=== PATIENT | male | born 1960 | race Caucasian/White ===

== ENCOUNTER 2017-02-05 23:01 | Inpatient (IN) ==
[2017-02-05] MEDS ORDERED: 0.9 % Sodium Chloride 1,000 ML IVC ONE ×2 (23:19→23:22)
[2017-02-05 23:26] LABS: Basophils % 0.1 %; Hemoglobin 17.5 g/dL (12.9-16.9); Immature Granulocytes % 0.6 % (0-4); Lymphocytes # 0.7 K/mcL (0.6-4.6); Lymphocytes % 4.2 %; Mean Corpuscular HGB Conc 33.7 g/dL (31.6-35.5); Mean Corpuscular Hemoglobin 31.4 pg (28.0-33.3); Mean Corpuscular Volume 93.4 fL (83.0-100.0); Mean Platelet Volume 9.8 fL (9.4-12.4); Monocytes # 2.2 K/mcL (0.0-1.3); Monocytes % 12.9 %; Neutrophils # 13.8 K/mcL (1.6-8.9); Platelet Count 267 K/mcL (140-400); Red Blood Count 5.57 M/mcL (4.19-5.50); Segmented Neutrophils % 82.2 %
[2017-02-05 23:31] LABS: Prothrombin Time 11.2 Seconds (9.4-12.1)
[2017-02-05 23:33] LABS: Activated Partial Thrombo Time 28.7 Seconds (26.0-36.0)
[2017-02-05 23:37] LABS: Alanine Aminotransferase 39 Units/L (7-52); Albumin 4.4 g/dL (3.5-5.7); Albumin/Globulin Ratio 1.4 (1.1-2.2); Alkaline Phosphatase 50 Units/L (34-104); Aspartate Amino Transferase 64 Units/L (13-39); BUN/Creatinine Ratio 25 (6-26); Bilirubin,Direct 0.2 mg/dL (0.0-0.2); Bilirubin,Indirect 0.7 mg/dL (0.0-1.2); Bilirubin,Total 0.9 mg/dL (0.3-1.0); Blood Urea Nitrogen 39 mg/dL (6-20); Calcium 9.1 mg/dL (8.6-10.3); Carbon Dioxide 22 mEq/L (23-29); Chloride 101 mEq/L (98-107); Ethanol < 10 mg/dL (0-10); Globulin 3.2 g/dL (2.4-3.5); Glucose 192 mg/dL (70-105); Osmolality,Calculated 305 (280-300); Potassium 3.6 mEq/L (3.5-5.1); Sodium 140 mEq/L (136-145); Total Protein 7.6 g/dL (6.4-8.9); eGFR For African Americans 57 (> 60); eGFR For Non-African Americans 47 (> 60)
--- NOTE | 2017-02-05 23:42 | Emergency Department Note ---
Disposition Clinical Impression: Unresponsive, Elevated troponin, Elevated CK Disposition: Admitted As Inpatient Condition: Serious General Adult HPI - General Chief complaint: ED Overdose Stated complaint: unresponsive Time Seen by Provider: 02/05/17 23:19 Source: family, EMS Mode of arrival: EMS Limitations: altered mental status Nursing Notes Reviewed: Yes Vital Signs Reviewed: Yes - History of Present Illness HPI Narrative: 56-year-old male no reported medical history who presents to the ER via EMS found unresponsive. As per family the patient lives at home alone. He usually calls them daily around 7 PM. They will call today after someone spoke with the patient around 1 PM and said that he was sick. Family states the said he was having a sore throat. 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 Reports that the police went to his house around 5 PM but no one came to the door. They did not see a scar there. They were called again and noticed that his car was around back. They do report that the window was busted out of it. The police then knock down his front door and apparently found the patient unresponsive. He was given Narcan prior to EMS arrival. EMS gave a second dose of Narcan and attempted to intubate multiple times without success. Patient did have emesis in route. He was given Versed prior to arrival here. Upon arrival he is unresponsive with a GCS of 3. He was promptly intubated for airway securement. Pt Subjective Complaint: Unresponsive Onset (ago): hour(s) Pain Scale: 0 Improves with: nothing Worsens with: nothing Treatments Prior to Arrival: other (Narcan) - Related Data Allergies Allergy/AdvReac Type Severity Reaction Status Date / Time No Known Allergies Allergy Verified 02/05/17 23:03 Limitations: ROS unobtainable due to patients medical condition Past Medical History - Past Medical History Attestation: Yes The following information was validated with the patient. Source: obtained from family Medical history: Reports: non-contributory - Social History Smoking Status: Unknown if ever smoked Physical Exam - General Limitations: other General appearance: obtunded - Head Head exam: atraumatic, normocephalic - Eye Eye exam: Present: normal appearance, miosis - Neck Neck exam: Present: normal inspection - Chest Chest inspection: Present: normal inspection, symmetric chest wall rise, other ( There is dried emesis over the left neck and chest that appears to be black.) - Respiratory Respiratory exam: Present: other (He has diminished breath sounds bilaterally.) - Cardiovascular Cardiovascular exam: Present: normal rhythm, tachycardia, normal heart sounds - Abdominal Exam Abdominal exam: Present: soft. Absent: distention - Extremities Exam Extremities exam: Present: normal inspection - Expanded Upper Extremity Exam Shoulder exam: Present: normal inspection Arm exam: Present: normal inspection Elbow exam: Present: normal inspection Forearm/Wrist exam: Present: normal inspection Hand exam: Present: normal inspection - Expanded Lower Extremity Exam Hip/Pelvis exam: Present: normal inspection Upper leg exam: Present: normal inspection Knee exam: Present: normal inspection Lower leg exam: Present: normal inspection Ankle exam: Present: normal inspection Foot/toe exam: Present: normal inspection - Neurological Exam Neurological exam: Present: other (The patient presents obtunded with a GCS of 3.) - Skin Skin exam: Present: warm, dry Course Course Narrative: Patient seen and examined upon time of arrival. He should promptly intubated for airway securement. He does have what appears to be dark dried blood over his left chest. Please see intubation procedure note for details. Patient was noted to be tachycardic up to 180 upon arrival. Cardioverted 2 without any change. We will perform a CT scan of the head and cervical spine as well as EKG , chest x-ray, labs including CK, troponin, pneumonia, ethanol, urine drug screen. Patient will be given IV fluids and reassessed. The patient was cardioverted twice first at 100 J and then an additional time at 200 J synchronized cardioversion. No change in rhythm. - Reevaluation(s) Reevaluation #1: Stool guaiac obtained. He was also noted that after removing the emesis from the patient's left arm there is an area of redness as well as his left flank and left hip. Unsure whether this is from a fall at home or being down unresponsive for several hours. We will pursue a CT scan of the chest abdomen and pelvis for evaluation. Reevaluation #2: I had a long discussion with family at bedside about the patient's imaging and labs. Patient to be admitted to the intensive care unit. The hospitalist did request that we attempt an lumbar puncture and check an influenza swab. See lumbar puncture procedure note for details. Vital Signs Temperature 98.0 F 02/05/17 23:06 Pulse Rate 175 02/05/17 23:06 Respiratory Rate 12 02/05/17 23:06 Blood Pressure 199/114 02/05/17 23:06 O2 Sat by Pulse Oximetry 92 02/05/17 23:06 Temperature 98.0 F 02/05/17 23:06 Pulse Rate 130 02/06/17 03:00 Respiratory Rate 21 02/06/17 00:36 Blood Pressure 141/98 02/06/17 03:00 O2 Sat by Pulse Oximetry 97 02/06/17 03:00 Oxygen Delivery Oxygen Delivery Ventilator Procedures - Intubation Time out performed: No sedative: Etomidate Mg Given: 20 paralytic: Rocuronium Mg Given: 100 Laryngoscope: Jennifer ET Tube Size: 7.5 ET Tube Uncuffed: No Tube Secured Depth (cm): 23 Tube Secured Location: teeth Tube Placement Confirmation: visualized tube passing through cords, equal breath sounds bilaterally, no breath sounds over epigastrium, confirmation by capnometry Patient Tolerated Procedure: well Intubation Complications: difficult intubation - Lumbar Puncture Consent Obtained: written consent Patient Position: right lateral decubitus Skin Prep: Povidone-Iodine 1% Spinal Needle Gauge: 20G Interspace Used: L4-L5 Complications: unable to obtain CSF Medical Decision Making - MDM Narrative Medical decision making narrative: 56-year-old male presents to the ER unresponsive. He was found after police had to break down his door. Allison complaining that he was having a sore throat at home. He otherwise has no medical problems. He received a total of 4 mg of Narcan prior to arrival without any response. He was intubated with a GCS of 3 on arrival. Noted to be tachycardic up to 180 here. Cardioverted 2 without any effect. Patient underwent CT scan of the head and cervical spine chest abdomen and pelvis without any acute findings. There is an abnormality on his head CT with suggestive follow-up for MRI. Labs seem to be fairly unremarkable. His CK is only slightly elevated at 3900. Troponin 0.04. UDS demonstrates benzos however he did receive Versed prior to arrival. Ethanol level undetected. Patient given Zosyn empirically for likely aspiration pneumonia given findings on chest CT. Case discussed with the hospitalist for intensive care admission. They did request a lumbar puncture in which we were unsuccessful to obtain. Patient's antibiotics escalated to vancomycin, Rocephin and acyclovir. Patient is admitted to the intensive care unit under the hospitalist service for unresponsiveness. - Lab Data Lab results reviewed: Yes I reviewed the patient's lab results. Result diagrams: 02/05/17 23:09 02/05/17 23:09 Lab Results 02/05/17 02/05/17 02/05/17 Range/Units 23:09 23:09 23:09 WBC 16.8 H (4.3-11.1) K/mcL RBC 5.57 H (4.19-5.50) M/mcL Hgb 17.5 H (12.9-16.9) g/dL Hct 52.0 H (37.5-50.1) % MCV 93.4 (83.0-100.0) fL MCH 31.4 (28.0-33.3) pg MCHC 33.7 (31.6-35.5) g/dL RDW 13.0 (11.5-14.5) % Plt Count 267 (140-400) K/mcL MPV 9.8 (9.4-12.4) fL Immature Gran % 0.6 (0-4) % Seg Neutrophils % 82.2 % Lymphocytes % 4.2 % Monocytes % 12.9 % Eosinophils % 0.0 % Basophils % 0.1 % Neutrophils # 13.8 H (1.6-8.9) K/mcL Lymphocytes # 0.7 (0.6-4.6) K/mcL Monocytes # 2.2 H (0.0-1.3) K/mcL Eosinophils # 0.0 (0.0-0.6) K/mcL Basophils # 0.0 (0.0-0.2) K/mcL PT 11.2 (9.4-12.1) Seconds INR 1.0 APTT 28.7 (26.0-36.0) Seconds ABG pH (7.32-7.45) pH Units ABG pCO2 (35-45) mmHg ABG pO2 (85-104) mmHg ABG HCO3 (21-27) mEq/L ABG Total CO2 (20-26) mEq/L ABG O2 Saturation (95-98) % ABG Base Excess (-2 to 3) mEq/L Blood Gas Modality Inspired O2 (1-15=lpm ej69-525=%) Sodium 140 (136-145) mEq/L Potassium 3.6 (3.5-5.1) mEq/L Chloride 101 (98-107) mEq/L Carbon Dioxide 22 L (23-29) mEq/L BUN 39 H (6-20) mg/dL Creatinine 1.54 H (0.70-1.30) mg/dL Est GFR ( Amer) 57 L (> 60) Est GFR (Non-Af Amer) 47 L (> 60) BUN/Creatinine Ratio 25 (6-26) Glucose 192 H (70-105) mg/dL Calculated Osmolality 305 H (280-300) Calcium 9.1 (8.6-10.3) mg/dL Total Bilirubin 0.9 (0.3-1.0) mg/dL Direct Bilirubin 0.2 (0.0-0.2) mg/dL Indirect Bilirubin 0.7 (0.0-1.2) mg/dL AST 64 H (13-39) Units/L ALT 39 (7-52) Units/L Alkaline Phosphatase 50 (34-104) Units/L Ammonia (16-53) mcmol/L Creatine Kinase (30-223) Units/L Troponin I (< 0.04) ng/mL Serum Total Protein 7.6 (6.4-8.9) g/dL Albumin 4.4 (3.5-5.7) g/dL Globulin 3.2 (2.4-3.5) g/dL Albumin/Globulin Ratio 1.4 (1.1-2.2) TSH 0.226 L (0.340-5.600) mcIU/mL Urine Color (Yellow) Urine Clarity (Clear) Urine pH (5.0-8.0) pH Units Ur Specific [place] (1.010-1.025) Urine Protein (Neg-Trace) mg/dL Urine Glucose (UA) (Normal) mg/dL Urine Ketones (Negative) mg/dL Urine Blood (Negative) Urine Nitrite (Negative) Urine Bilirubin (Negative) Urine Urobilinogen (Normal) mg/dL Ur Leukocyte Esterase (Negative) Urine Microscopic RBC (0-3) per hpf Urine Microscopic WBC (0-3) per hpf Ur Squamous Epith Cells (None-Few) per lpf Urine Bacteria (None-Few) per hpf Hyaline Casts (None-Few) per lpf Urine Mucus (Few) Ur Culture Indicated? (NO) Stool Occult Blood (Negative) Urine Opiates Screen (Wabjhq=564) ng/mL Ur Barbiturates Screen (Bnqeop=782) ng/mL Ur Phencyclidine Scrn (Cutoff=25) ng/mL Ur Amphetamines Screen (Ggcgja=8118) ng/mL U Benzodiazepines Scrn (Yfltzp=717) ng/mL Urine Cocaine Screen (Cutoff= 300) ng/mL U Marijuana (THC) Screen (Cutoff = 50) ng/mL Ethyl Alcohol < 10 (0-10) mg/dL 02/05/17 02/05/17 02/05/17 Range/Units 23:09 23:09 23:09 WBC (4.3-11.1) K/mcL RBC (4.19-5.50) M/mcL Hgb (12.9-16.9) g/dL Hct (37.5-50.1) % MCV (83.0-100.0) fL MCH (28.0-33.3) pg MCHC (31.6-35.5) g/dL RDW (11.5-14.5) % Plt Count (140-400) K/mcL MPV (9.4-12.4) fL Immature Gran % (0-4) % Seg Neutrophils % % Lymphocytes % % Monocytes % % Eosinophils % % Basophils % % Neutrophils # (1.6-8.9) K/mcL Lymphocytes # (0.6-4.6) K/mcL Monocytes # (0.0-1.3) K/mcL Eosinophils # (0.0-0.6) K/mcL Basophils # (0.0-0.2) K/mcL PT (9.4-12.1) Seconds INR APTT (26.0-36.0) Seconds ABG pH (7.32-7.45) pH Units ABG pCO2 (35-45) mmHg ABG pO2 (85-104) mmHg ABG HCO3 (21-27) mEq/L ABG Total CO2 (20-26) mEq/L ABG O2 Saturation (95-98) % ABG Base Excess (-2 to 3) mEq/L Blood Gas Modality Inspired O2 (1-15=lpm dc85-785=%) Sodium (136-145) mEq/L Potassium (3.5-5.1) mEq/L Chloride (98-107) mEq/L Carbon Dioxide (23-29) mEq/L BUN (6-20) mg/dL Creatinine (0.70-1.30) mg/dL Est GFR ( Amer) (> 60) Est GFR (Non-Af Amer) (> 60) BUN/Creatinine Ratio (6-26) Glucose (70-105) mg/dL Calculated Osmolality (280-300) Calcium (8.6-10.3) mg/dL Total Bilirubin (0.3-1.0) mg/dL Direct Bilirubin (0.0-0.2) mg/dL Indirect Bilirubin (0.0-1.2) mg/dL AST (13-39) Units/L ALT (7-52) Units/L Alkaline Phosphatase (34-104) Units/L Ammonia 46 (16-53) mcmol/L Creatine Kinase 3904 H (30-223) Units/L Troponin I 0.04 H* (< 0.04) ng/mL Serum Total Protein (6.4-8.9) g/dL Albumin (3.5-5.7) g/dL Globulin (2.4-3.5) g/dL Albumin/Globulin Ratio (1.1-2.2) TSH (0.340-5.600) mcIU/mL Urine Color (Yellow) Urine Clarity (Clear) Urine pH (5.0-8.0) pH Units Ur Specific [place] (1.010-1.025) Urine Protein (Neg-Trace) mg/dL Urine Glucose (UA) (Normal) mg/dL Urine Ketones (Negative) mg/dL Urine Blood (Negative) Urine Nitrite (Negative) Urine Bilirubin (Negative) Urine Urobilinogen (Normal) mg/dL Ur Leukocyte Esterase (Negative) Urine Microscopic RBC (0-3) per hpf Urine Microscopic WBC (0-3) per hpf Ur Squamous Epith Cells (None-Few) per lpf Urine Bacteria (None-Few) per hpf Hyaline Casts (None-Few) per lpf Urine Mucus (Few) Ur Culture Indicated? (NO) Stool Occult Blood (Negative) Urine Opiates Screen (Ksiaug=592) ng/mL Ur Barbiturates Screen (Osrzgf=516) ng/mL Ur Phencyclidine Scrn (Cutoff=25) ng/mL Ur Amphetamines Screen (Cnesqv=7295) ng/mL U Benzodiazepines Scrn (Gttepn=635) ng/mL Urine Cocaine Screen (Cutoff= 300) ng/mL U Marijuana (THC) Screen (Cutoff = 50) ng/mL Ethyl Alcohol (0-10) mg/dL 02/05/17 02/05/17 02/05/17 Range/Units 23:34 23:34 23:35 WBC (4.3-11.1) K/mcL RBC (4.19-5.50) M/mcL Hgb (12.9-16.9) g/dL Hct (37.5-50.1) % MCV (83.0-100.0) fL MCH (28.0-33.3) pg MCHC (31.6-35.5) g/dL RDW (11.5-14.5) % Plt Count (140-400) K/mcL MPV (9.4-12.4) fL Immature Gran % (0-4) % Seg Neutrophils % % Lymphocytes % % Monocytes % % Eosinophils % % Basophils % % Neutrophils # (1.6-8.9) K/mcL Lymphocytes # (0.6-4.6) K/mcL Monocytes # (0.0-1.3) K/mcL Eosinophils # (0.0-0.6) K/mcL Basophils # (0.0-0.2) K/mcL PT (9.4-12.1) Seconds INR APTT (26.0-36.0) Seconds ABG pH (7.32-7.45) pH Units ABG pCO2 (35-45) mmHg ABG pO2 (85-104) mmHg ABG HCO3 (21-27) mEq/L ABG Total CO2 (20-26) mEq/L ABG O2 Saturation (95-98) % ABG Base Excess (-2 to 3) mEq/L Blood Gas Modality Inspired O2 (1-15=lpm ab72-610=%) Sodium (136-145) mEq/L Potassium (3.5-5.1) mEq/L Chloride (98-107) mEq/L Carbon Dioxide (23-29) mEq/L BUN (6-20) mg/dL Creatinine (0.70-1.30) mg/dL Est GFR ( Amer) (> 60) Est GFR (Non-Af Amer) (> 60) BUN/Creatinine Ratio (6-26) Glucose (70-105) mg/dL Calculated Osmolality (280-300) Calcium (8.6-10.3) mg/dL Total Bilirubin (0.3-1.0) mg/dL Direct Bilirubin (0.0-0.2) mg/dL Indirect Bilirubin (0.0-1.2) mg/dL AST (13-39) Units/L ALT (7-52) Units/L Alkaline Phosphatase (34-104) Units/L Ammonia (16-53) mcmol/L Creatine Kinase (30-223) Units/L Troponin I (< 0.04) ng/mL Serum Total Protein (6.4-8.9) g/dL Albumin (3.5-5.7) g/dL Globulin (2.4-3.5) g/dL Albumin/Globulin Ratio (1.1-2.2) TSH (0.340-5.600) mcIU/mL Urine Color Yellow (Yellow) Urine Clarity Clear (Clear) Urine pH 5.5 (5.0-8.0) pH Units Ur Specific [place] > 1.030 H (1.010-1.025) Urine Protein 30 H (Neg-Trace) mg/dL Urine Glucose (UA) Normal (Normal) mg/dL Urine Ketones Negative (Negative) mg/dL Urine Blood Large H (Negative) Urine Nitrite Negative (Negative) Urine Bilirubin Negative (Negative) Urine Urobilinogen Normal (Normal) mg/dL Ur Leukocyte Esterase Negative (Negative) Urine Microscopic RBC 0-3 (0-3) per hpf Urine Microscopic WBC 0-3 (0-3) per hpf Ur Squamous Epith Cells Many H (None-Few) per lpf Urine Bacteria Few (None-Few) per hpf Hyaline Casts Few (None-Few) per lpf Urine Mucus Few (Few) Ur Culture Indicated? NO (NO) Stool Occult Blood Positive A (Negative) Urine Opiates Screen Negative (Dkrokz=626) ng/mL Ur Barbiturates Screen Negative (Tfwimo=931) ng/mL Ur Phencyclidine Scrn Negative (Cutoff=25) ng/mL Ur Amphetamines Screen Negative (Olfmer=7336) ng/mL U Benzodiazepines Scrn Positive H (Tcpslj=673) ng/mL Urine Cocaine Screen Negative (Cutoff= 300) ng/mL U Marijuana (THC) Screen Negative (Cutoff = 50) ng/mL Ethyl Alcohol (0-10) mg/dL 02/06/17 Range/Units 00:23 WBC (4.3-11.1) K/mcL RBC (4.19-5.50) M/mcL Hgb (12.9-16.9) g/dL Hct (37.5-50.1) % MCV (83.0-100.0) fL MCH (28.0-33.3) pg MCHC (31.6-35.5) g/dL RDW (11.5-14.5) % Plt Count (140-400) K/mcL MPV (9.4-12.4) fL Immature Gran % (0-4) % Seg Neutrophils % % Lymphocytes % % Monocytes % % Eosinophils % % Basophils % % Neutrophils # (1.6-8.9) K/mcL Lymphocytes # (0.6-4.6) K/mcL Monocytes # (0.0-1.3) K/mcL Eosinophils # (0.0-0.6) K/mcL Basophils # (0.0-0.2) K/mcL PT (9.4-12.1) Seconds INR APTT (26.0-36.0) Seconds ABG pH 7.35 (7.32-7.45) pH Units ABG pCO2 50 H (35-45) mmHg ABG pO2 399 H (85-104) mmHg ABG HCO3 28 H (21-27) mEq/L ABG Total CO2 29 H (20-26) mEq/L ABG O2 Saturation 100 H (95-98) % ABG Base Excess 1 (-2 to 3) mEq/L Blood Gas Modality VC Inspired O2 100.0 (1-15=lpm pr81-474=%) Sodium (136-145) mEq/L Potassium (3.5-5.1) mEq/L Chloride (98-107) mEq/L Carbon Dioxide (23-29) mEq/L BUN (6-20) mg/dL Creatinine (0.70-1.30) mg/dL Est GFR ( Amer) (> 60) Est GFR (Non-Af Amer) (> 60) BUN/Creatinine Ratio (6-26) Glucose (70-105) mg/dL Calculated Osmolality (280-300) Calcium (8.6-10.3) mg/dL Total Bilirubin (0.3-1.0) mg/dL Direct Bilirubin (0.0-0.2) mg/dL Indirect Bilirubin (0.0-1.2) mg/dL AST (13-39) Units/L ALT (7-52) Units/L Alkaline Phosphatase (34-104) Units/L Ammonia (16-53) mcmol/L Creatine Kinase (30-223) Units/L Troponin I (< 0.04) ng/mL Serum Total Protein (6.4-8.9) g/dL Albumin (3.5-5.7) g/dL Globulin (2.4-3.5) g/dL Albumin/Globulin Ratio (1.1-2.2) TSH (0.340-5.600) mcIU/mL Urine Color (Yellow) Urine Clarity (Clear) Urine pH (5.0-8.0) pH Units Ur Specific [place] (1.010-1.025) Urine Protein (Neg-Trace) mg/dL Urine Glucose (UA) (Normal) mg/dL Urine Ketones (Negative) mg/dL Urine Blood (Negative) Urine Nitrite (Negative) Urine Bilirubin (Negative) Urine Urobilinogen (Normal) mg/dL Ur Leukocyte Esterase (Negative) Urine Microscopic RBC (0-3) per hpf Urine Microscopic WBC (0-3) per hpf Ur Squamous Epith Cells (None-Few) per lpf Urine Bacteria (None-Few) per hpf Hyaline Casts (None-Few) per lpf Urine Mucus (Few) Ur Culture Indicated? (NO) Stool Occult Blood (Negative) Urine Opiates Screen (Xhsqti=173) ng/mL Ur Barbiturates Screen (Wumgfg=123) ng/mL Ur Phencyclidine Scrn (Cutoff=25) ng/mL Ur Amphetamines Screen (Mmalqc=6036) ng/mL U Benzodiazepines Scrn (Iijuzj=565) ng/mL Urine Cocaine Screen (Cutoff= 300) ng/mL U Marijuana (THC) Screen (Cutoff = 50) ng/mL Ethyl Alcohol (0-10) mg/dL - Radiology Data Radiology results reviewed: Yes I reviewed the patient's radiology results. Head CT 02/05/17 23:19 IMPRESSION: 1. No acute hemorrhage. 2. There are indeterminate low-attenuation foci in the cerebellum bilaterally without appreciable mass effect. Contrast-enhanced MRI of the brain may provide additional diagnostic information. D/ / José Lara MD / José Lara MD Interpreting Provider: José Lara MD Cervical Spine CT 02/05/17 23:30 IMPRESSION: No acute abnormality of the cervical spine. D/ / Veena Sanchez MD / Veena Sanchez MD Interpreting Provider: Veena Sanchez MD Chest X-Ray 02/06/17 00:01 IMPRESSION: Appropriate endotracheal tube positioning. No pneumothorax. D/ / Lenard Whiteside / Lenard Whiteside Interpreting Provider: Lenard Whiteside Abdomen/Pelvis CT 02/06/17 00:10 IMPRESSION: 1. Bilateral lower lobe airspace disease probably represents atelectasis though pneumonia cannot be excluded. 2. Endotracheal tube is in terminates approximately 3 cm above the carmen. 3. The enteric tube tip is in the distal stomach or duodenal bulb. The tube could be withdrawn approximately 5 cm. 4. No acute findings in the abdomen or pelvis. D/ / José Lara MD / José Lara MD Interpreting Provider: José Lara MD Chest CT 02/06/17 00:10 IMPRESSION: 1. Bilateral lower lobe airspace disease probably represents atelectasis though pneumonia cannot be excluded. 2. Endotracheal tube is in terminates approximately 3 cm above the cramen. 3. The enteric tube tip is in the distal stomach or duodenal bulb. The tube could be withdrawn approximately 5 cm. 4. No acute findings in the abdomen or pelvis. D/ / José Lara MD / José Lara MD Interpreting Provider: José Lara MD - EKG Data EKG #1 EKG attestation: Yes I reviewed and interpreted this EKG. EKG results narrative: EKG demonstrates supraventricular tachycardia with a rate of 175. Normal axis. Normal intervals. Normal R-wave progression. There is 1 mm upsloping depression in leads V4-V6. No gross ST elevations. or previous EKG for comparison. Critical Care Time Critical Care Time: Yes Total Critical Care Time: 60 Attestation: Critical care performed: Time is exclusive of separately billable procedures. Time includes: direct patient care, patient reassessment, coordination of patient care, interpretation of data (laboratory data, radiology data, and respiratory data), review of patient's medical records, medical consultation and documentation of patient care. Procedures included in critical care time: Procedures excluded from critical care time: Endotracheal intubation, lumbar puncture attempt Attestation Statement - Attestation Attestation: I, Robert Pavon MD, personally evaluated this patient and discussed their management with the resident physician. I reviewed the resident's note and agree with the documented findings, medical decision making, and plan of care. 56-year-old male presents to the emergency department by ambulance unresponsive. Patient lives alone. He has apparently been ill for the last 24 hours or so. His mother reports that she talked to him on the phone last night about 7 PM and the complaint that he did not feel well and felt like he was getting a sore throat again. Apparently he saw a friend around 1 AM today and they reported that he was complaining of double vision and trouble with his balance and did not feel well. Family were unable to contact him Augmentin today. He would not answer is found to respond text messages. They went to his home about 5 PM and it was locked and they could not get in. They called the police who came to check on him. Apparently one of his vehicles was missing and so the health lately down somewhere. They went back later this evening as they were still unable to contact him. They found the missing vehicle and it was actually just parked in a garage and was not missing and was there all the time. The police again who kicked in the door and found the patient unresponsive with black emesis and gurgling respirations. There is no response to nasal Narcan. EMS arrived and established an IV. He received 2 mg of Narcan IV with no response. EMS attempted intubation unsuccessfully. On arrival here in the emergency Department patient was being bagged. He did have spontaneous respirations but totally unresponsive to pain. Patient was intubated here in the emergency department by Dr. Kendall. A second IV established. Patient very tachycardic on arrival with a heart rate from 150s to 170s. Also hypertensive. On examination there are no scalp hematomas or contusions noted. Pupils are constricted but equal. No palpable bony defect of the cervical spine. No bony crepitus or subcutaneous emphysema the chest. Breath sounds are equal bilaterally with some coarse gurgling upper airway sounds. Heart is tachycardic and regular. Abdomen is soft with present bowel sounds. Labs reviewed. Chest x-ray negative. CT of the cervical spine negative. Head CT: 1. No acute hemorrhage. 2. There are indeterminate low-attenuation foci in the cerebellum bilaterally without appreciable mass effect. Contrast- enhanced MRI of the brain may provide additional diagnostic information. CT of the chest showed bilateral lower lobe airspace disease, likely atelectasis but pneumonia not excluded. CT of the abdomen and pelvis showed no acute abnormality. A lumbar puncture was attempted at the request of the hospitalist but we were unable to obtain CSF fluid. The hospitalist, Dr. Head, was consulted and accepted admission of the patient.
[2017-02-05 23:45] LABS: Bilirubin,Urine Negative (Negative); Blood,Urine Large (Negative); Clarity,Urine Clear (Clear); Color,Urine Yellow (Yellow); Glucose,Urine (UA) Normal (Normal); Ketones,Urine Negative (Negative); Leukocyte Esterase,Urine Negative (Negative); Nitrite,Urine Negative (Negative); PH,Urine 5.5 pH Units (5.0-8.0); Protein,Urine 30 mg/dL (Neg-Trace); Specific Gravity,Urine > 1.030 (1.010-1.025); Urobilinogen,Urine Normal (Normal)
[2017-02-05 23:50] LABS: RBC,Urine 0-3 per hpf (0-3); Squamous Epithelial Cell,Urine Many per lpf (None-Few); WBC,Urine 0-3 per hpf (0-3)
[2017-02-05 23:52] LABS: Amphetamine Screen,Urine Negative ng/mL (Cutoff=1000); Barbiturate Screen,Urine Negative ng/mL (Cutoff=200); Benzodiazepines Screen,Urine Positive ng/mL (Cutoff=200); Cannabinoid Screen,Urine Negative ng/mL (Cutoff = 50); Cocaine Screen,Urine Negative ng/mL (Cutoff= 300); Opiate Screen,Urine Negative ng/mL (Cutoff=300); Phencyclidine Screen,Urine Negative ng/mL (Cutoff=25)
[2017-02-05 23:54] LABS: Thyroid Stimulating Hormone 0.226 mcIU/mL (0.340-5.600)
[2017-02-06 00:02] LABS: Bacteria,Urine Few per hpf (None-Few); Hyaline Casts,Urine Few per lpf (None-Few); Mucus,Urine Few (Few)
[2017-02-06] MEDS ORDERED: Pantoprazole 80 MG in 0.9 % Sodium Chloride 250 ML IVPB ONE (00:19)
[2017-02-06 00:26] LABS: ABG Base Excess 1 mEq/L (-2 to 3); ABG HCO3 28 mEq/L (21-27); ABG Oxygen Saturation 100 % (95-98); ABG PCO2 50 mmHg (35-45); ABG PH 7.35 pH Units (7.32-7.45); ABG PO2 399 mmHg (85-104); ABG TCO2 29 mEq/L (20-26); Blood Gas Modality VC
[2017-02-06] MEDS ORDERED: Piperacillin/Tazobactam 3.375 GM in Water for inj. (sterile) 20 ML IVP ONE (01:48)
[2017-02-06] MEDS ORDERED: Vancomycin 1,250 MG in D5% in Water 250 ML IVPB ONE (02:56)
[2017-02-06] MEDS ORDERED: Acyclovir 800 MG in D5% in Water 250 ML IVPB ONE (02:58)
[2017-02-06] MEDS ORDERED: cefTRIAXone 2,000 MG in Water for inj. (sterile) 20 ML 20 ML IVP ONE ×2 (03:12→15:00)
[2017-02-06] MEDS ORDERED: Naloxone 0.4 MG/ML INJ IVP PRN (03:37)
[2017-02-06] MEDS ORDERED: 0.9 % Sodium Chloride 1,000 ML IVC SCH (03:45)
[2017-02-06] MEDS ORDERED: Ampicillin 2 GM in 0.9 % Sodium Chloride Mini Bag 100 ML IVPB SCH (04:00)
[2017-02-06] MEDS ORDERED: Pantoprazole 80 MG in 0.9 % Sodium Chloride 250 ML IVC SCH (04:00)
[2017-02-06] MEDS ORDERED: Vancomycin 1,250 MG in D5% in Water 250 ML IVPB SCH ×2 (04:00→17:00)
--- NOTE | 2017-02-06 04:08 | Internal Med History&Physical ---
Date of Encounter: 02/06/17 Time of Encounter: 03:15 Assessment and Plan (1) Unresponsive Current visit: Yes Status: Acute Etiology is undetermined. CT shows unclear lesion b/l, need MRI to confirm. Pt c /o sore throat prior to unresponsive, need to r/o infection. Failed LP in ER. - Cont ventilation and air way protection. - Empirically place pt on vanco, rocephin, ampicillin, and acyclovir. - MRI - Critical care and neurology consult. - Cont IVF Critical care time 40 minutes for Hx, physical, medical decision making. (2) GI bleed Current visit: Yes Status: Acute Patient was found guaiac test positive in emergency room. Hemoglobin is not significantly dropped. Suspect stress ulcer as pt is nonresponsive. NG tube placed by ER physician. Will place patient on Protonix drip. Closely monitor H& H (q6h) and vitals Qualifiers: GI bleed type/associated pathology: gastric ulcer Qualified Code(s): K25.4 - Chronic or unspecified gastric ulcer with hemorrhage (3) Elevated troponin Current visit: Yes Status: Acute Troponin 0.04. Most likely demand ischemia as pt has tachycardia upon arrival to ER. Will track 3 sets of troponin. (4) Elevated CK Current visit: Yes Status: Acute Don't know how long pt is on floor. Consider rhabdomyolysis. We will continue IV fluid. Follow-up CK level. (5) DVT prophylaxis Current visit: Yes Status: Acute EPCD, no anticoagulation because of positive guaiac test Internal Medicine - H&P: HPI Chief complaint: Unresponsive Admitted From: Home Plans for Post Hospital Care: Home History of present illness: Mr. Mueller is a 56 year old male with no known medical history sent to emergency room by EMS for nonresponsive. Pt was intubated and on ventilation. Hx obtained from pt's mother. Pt talk with his mother on phone at about 7pm on Tuesday. He c/ o sore throat. No fever. Pt also has chronic headache. Pt lives alone and after Tuesday 7pm no confirmed information to show he is fine. Police found him on floor, nonresponsive on Tuesday afternoon about 5 pm. EMS was called, pt was given Narcan x 2 by EMS and his mental status doesn't improve. He was intubated as arrived at ER for airway protection. CT head done, shows low-attenuation foci in the cerebellum bilaterally, no hemorrhage. CT c-spine, chest and abdominal unremarkable. ER physician tried lumbar puncture but failed. Patient was placed on IV fluid, empiric anti-bacteria and antiviral therapy to cover bacterial meningitis and viral encephalitis. Patient will be admitted to ICU for further management. Past Med Surg Social Fam HX - Past Medical History Medical history: non-contributory - Social History Smoking Status: Unknown if ever smoked - Family History Mother History Unknown: Yes Internal Medicine - H&P: Meds 3 Allergy/AdvReac Type Severity Reaction Status Date / Time No Known Allergies Allergy Verified 02/05/17 23:03 All Systems PM: A 10-system review of systems was performed and is negative for pertinent findings except as documented above in the HPI. - Constitutional Vitals: Temp Pulse Resp BP Pulse Ox 98.0 F 130 16 141/98 96 02/05/17 23:06 02/06/17 03:00 02/06/17 03:45 02/06/17 03:00 02/06/17 03:45 Exam: Nonresponsive, intubated - Head Head exam: Present: atraumatic, normocephalic - Eye Eye exam: Present: conjuntiva pink, sclera anicteric Pupils: Present: fixed ( around 2mm b/l) - Neck Neck exam general surgery: Present: supple, trachea midline. Absent: lymphadenopathy - Respiratory Respiratory exam: Present: CTAB. Absent: accessory muscle use, rales, rhonchi, wheezes - Cardiovascular Cardiovascular exam: Present: RRR, +S1, +S2. Absent: diastolic murmur, gallop, rubs, systolic murmur - GI/Abdominal GI/Abdominal exam: Present: normal bowel sounds, soft, no peritoneal signs. Absent: distended, tenderness - Extremities Exam Extremities exam: Present: warm, radial pulses palpable and symmetrical. Absent : calf tenderness, cyanotic, pedal edema - Neurological Exam Neurological exam: Absent: facial droop - Skin Skin exam: Present: dry, intact Internal Med - H&P Results - Labs CBC & Chem 7: 02/05/17 23:09 02/05/17 23:09 - EKG Data -: EKG Interpreted by Myself EKG shows normal: sinus rhythm (With APCs and the PVCs) Rate: tachycardia
[2017-02-06 04:09] LABS: Basophils % 0.1 %; Hematocrit 47.5 % (37.5-50.1); Hemoglobin 15.9 g/dL (12.9-16.9); Immature Granulocytes % 0.5 % (0-4); Immature Platelets 3.1 % (1.1-6.1); Lymphocytes # 1.7 K/mcL (0.6-4.6); Lymphocytes % 9.5 %; Mean Corpuscular HGB Conc 33.5 g/dL (31.6-35.5); Mean Corpuscular Hemoglobin 31.2 pg (28.0-33.3); Mean Corpuscular Volume 93.1 fL (83.0-100.0); Mean Platelet Volume 9.8 fL (9.4-12.4); Monocytes # 2.6 K/mcL (0.0-1.3); Monocytes % 14.3 %; Neutrophils # 13.4 K/mcL (1.6-8.9); Platelet Count 235 K/mcL (140-400); Red Cell Distribution Width 13.2 % (11.5-14.5); Segmented Neutrophils % 75.6 %
[2017-02-06 04:27] LABS: BUN/Creatinine Ratio 27 (6-26); Blood Urea Nitrogen 30 mg/dL (6-20); Carbon Dioxide 25 mEq/L (23-29); Chloride 108 mEq/L (98-107); Glucose 142 mg/dL (70-105); Osmolality,Calculated 299 (280-300); Potassium 3.8 mEq/L (3.5-5.1); Sodium 140 mEq/L (136-145); eGFR For African Americans > 60 (> 60); eGFR For Non-African Americans > 60 (> 60)
[2017-02-06 09:13] LABS: ABG Base Excess 1 mEq/L (-2 to 3); ABG Chloride 107 mEq/L (98-107); ABG Glucose 137 mg/dL (60-95); ABG HCO3 25 mEq/L (21-27); ABG Ionized Calcium 1.06 mmol/L (1.15-1.35); ABG Oxygen Saturation 97 % (95-98); ABG PCO2 37 mmHg (35-45); ABG PH 7.44 pH Units (7.32-7.45); ABG PO2 83 mmHg (85-104); ABG TCO2 26 mEq/L (20-26); Blood Gas Modality ASSIST CONTROL; Blood Gas Respiration Rate 16; Blood Gas VT 500 cc
[2017-02-06] MEDS ORDERED: *HR* Etomidate 20 MG/10 ML AMPUL IVP ONE (09:49)
[2017-02-06] MEDS ORDERED: *HR* Rocuronium Bromide 100 MG/10 ML VIAL IVC ONE (09:49)
[2017-02-06] MEDS ORDERED: Aminoglycoside Consult 1 EACH MC ONE (09:49)
--- NOTE | 2017-02-06 10:18 | Pulmonology Consult Note ---
Date of Encounter: 02/06/17 Time of Encounter: 10:00 Past Med Surg Social Fam HX - Past Medical History Medical history: non-contributory, migraine - Social History Smoking Status: Unknown if ever smoked - Family History Mother History Unknown: Yes Medications and Allergies 3 Allergy/AdvReac Type Severity Reaction Status Date / Time No Known Allergies Allergy Verified 02/05/17 23:03 All Systems: A 10-system review of systems was performed and is negative for pertinent findings except as documented above in the HPI. Physical Examination Vital Signs: Vital Signs, Last 4 Hours Resp Pulse Ox 02/06/17 07:48 19 98 Ventilator Settings Ventilator Settings: Ventilator Settings, Last 8 Hours Ventilator Mode VC+ Ventilator Mode VC+ Ventilator Mode VC+ Ventilator Mode VC+ Ventilator Tidal Volume 500 Setting Ventilator Tidal Volume 500 Setting Ventilator Tidal Volume 500 Setting Ventilator Tidal Volume 500 Setting Ventilator Respiratory Rate 16 Setting Ventilator Respiratory Rate 16 Setting Ventilator Respiratory Rate 16 Setting Ventilator Respiratory Rate 16 Setting Actual Respiratory Rate 19 Actual Respiratory Rate 18 Actual Respiratory Rate 25 Positive End Expiratory 5 Pressure Positive End Expiratory 5 Pressure Positive End Expiratory 5 Pressure Positive End Expiratory 5 Pressure Peak Inspiratory Airway 14 Pressure Peak Inspiratory Airway 17 Pressure Peak Inspiratory Airway 10 Pressure Results - Laboratory Findings CBC and BMP: 02/06/17 03:57 02/06/17 03:57 ABG ABG pH 7.44 pH Units (7.32-7.45) 02/06/17 08:05 ABG pCO2 37 mmHg (35-45) 02/06/17 08:05 ABG pO2 83 mmHg (85-104) L 02/06/17 08:05 ABG O2 Saturation 97 % (95-98) 02/06/17 08:05 PT/INR, D-dimer PT 11.2 Seconds (9.4-12.1) 02/05/17 23:09 Abnormal lab findings: Abnormal lab results WBC 17.8 K/mcL (4.3-11.1) H 02/06/17 03:57 Neutrophils # 13.4 K/mcL (1.6-8.9) H 02/06/17 03:57 Monocytes # 2.6 K/mcL (0.0-1.3) H 02/06/17 03:57 ABG pO2 83 mmHg (85-104) L 02/06/17 08:05 Glucose 137 mg/dL (60-95) H 02/06/17 08:05 Chloride 108 mEq/L (98-107) H 02/06/17 03:57 BUN 30 mg/dL (6-20) H 02/06/17 03:57 BUN/Creatinine Ratio 27 (6-26) H 02/06/17 03:57 Glucose 142 mg/dL (70-105) H 02/06/17 03:57 POC Glucose 133 (58-89) H 02/06/17 03:47 Calcium 8.0 mg/dL (8.6-10.3) L 02/06/17 03:57 AST 64 Units/L (13-39) H 02/05/17 23:09 Creatine Kinase > 08186 Units/L (30-223) H 02/06/17 03:57 Troponin I 0.08 ng/mL (< 0.04) H* 02/06/17 03:57 TSH 0.226 mcIU/mL (0.340-5.600) L 02/05/17 23:09 Arterial Blood Ionized Calcium 1.06 mmol/L (1.15-1.35) L 02/06/17 08:05 Ur Specific [place] > 1.030 (1.010-1.025) H 02/05/17 23:34 Urine Protein 30 mg/dL (Neg-Trace) H 02/05/17 23:34 Urine Blood Large (Negative) H 02/05/17 23:34 Ur Squamous Epith Cells Many per lpf (None-Few) H 02/05/17 23:34 Stool Occult Blood Positive (Negative) A 02/05/17 23:35 U Benzodiazepines Scrn Positive ng/mL (Rixzfo=186) H 02/05/17 23:34 - Clinical Findings Intake & Output: Intake & Output 02/05/17 02/06/17 02/06/17 23:59 07:59 15:59 Intake Total 2041 Output Total 150 / 150 Balance -130 / 1892 Weight 92.3 kg Consult Discharge Plan - Plan Referrals: Herman Cooper DO [Primary Care Provider] -
[2017-02-06] MEDS ORDERED: Acyclovir 900 MG in D5% in Water 250 ML IVPB SCH (11:00)
[2017-02-06 20:33] VITALS: BP 166/108
--- NOTE | 2017-02-06 22:56 | Discharge Summary ---
Date of Encounter: 02/07/17 Time of Encounter: 07:15 - Discharge Diagnosis (1) Cerebellar stroke, acute Priority: Secondary Status: Acute Comments: Chance of herniation , if there is salvageable pontine area he might need decompressive surgery to give him a chance salvageable tissue decided to shift to Neuro ICU at [place] , Neurointensivist at [place] accepted the patient. 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 (3) Cerebral anoxic injury Priority: Secondary Status: Acute Comments: Concern for cerebral anoxic injury . - Discharge Medications Home Medications: No Known Home Drugs 02/06/17 [History] Allergies/Adverse Reactions: 3 Allergy/AdvReac Type Severity Reaction Status Date / Time No Known Allergies Allergy Verified 02/05/17 23:03 Labs on day of discharge: Labs from last 24 hours 02/06/17 02/06/17 02/06/17 08:05 03:57 03:57 WBC RBC Hgb Hct MCV MCH MCHC RDW Plt Count MPV Immature Gran % Seg Neutrophils % Lymphocytes % Monocytes % Eosinophils % Basophils % Neutrophils # Lymphocytes # Monocytes # Eosinophils # Basophils # Immature Plt Fraction ABG pH 7.44 ABG pCO2 37 ABG pO2 83 L ABG HCO3 25 ABG Total CO2 26 ABG O2 Saturation 97 ABG Base Excess 1 ABG Chloride 107 Lactate 1.6 Respiration Rate 16 Blood Gas Modality ASSIST CONTROL Inspired O2 30.0 Tidal Volume 500 PEEP 5 Sodium 143 140 Potassium 3.6 3.8 Chloride 108 H Carbon Dioxide 25 BUN 30 H Creatinine 1.10 Est GFR ( Amer) > 60 Est GFR (Non-Af Amer) > 60 BUN/Creatinine Ratio 27 H Glucose 137 H 142 H POC Glucose Calculated Osmolality 299 Calcium 8.0 L Magnesium 2.0 Creatine Kinase > 32731 H Troponin I Arterial Blood Ionized Calcium 1.06 L 02/06/17 02/06/17 02/06/17 03:57 03:57 03:47 WBC 17.8 H RBC 5.10 Hgb 15.9 D Hct 47.5 MCV 93.1 MCH 31.2 MCHC 33.5 RDW 13.2 Plt Count 235 MPV 9.8 Immature Gran % 0.5 Seg Neutrophils % 75.6 Lymphocytes % 9.5 Monocytes % 14.3 Eosinophils % 0.0 Basophils % 0.1 Neutrophils # 13.4 H Lymphocytes # 1.7 Monocytes # 2.6 H Eosinophils # 0.0 Basophils # 0.0 Immature Plt Fraction 3.1 ABG pH ABG pCO2 ABG pO2 ABG HCO3 ABG Total CO2 ABG O2 Saturation ABG Base Excess ABG Chloride Lactate Respiration Rate Blood Gas Modality Inspired O2 Tidal Volume PEEP Sodium Potassium Chloride Carbon Dioxide BUN Creatinine Est GFR ( Amer) Est GFR (Non-Af Amer) BUN/Creatinine Ratio Glucose POC Glucose 133 H Calculated Osmolality Calcium Magnesium Creatine Kinase Troponin I 0.08 H* Arterial Blood Ionized Calcium - Impressions ITS Impressions Brain MRI 02/06/17 03:48 IMPRESSION: 1. Acute/early subacute infarction involving both cerebellar hemispheres bilaterally as well as much of the rhonda. Subacute infarctions in the left cerebellum. Equivocal diffusion restriction in the insular cortices bilaterally may represent hypoxic injury. No associated hemorrhage. 2. Diminished flow void within the distal left intradural vertebral artery and basilar artery may represent high-grade stenosis or partial occlusion. CTA of the head could be obtained for further evaluation. 3. FLAIR hyperintense signal within the parietal sulci bilaterally may be due to hyperoxygenation from intubation. The findings were sent to the Radiology Results Communication Center at 6:54 am on 02/06/2017to be communicated to a licensed caregiver. D/ / 02/06/2017 07:30:17 Veena Sanchez MD / bcarter Interpreting Provider: Veena Sanchez MD Date of admission: 02/06/17 03:18 Primary care physician: Yessenia Butler Consults: 02/06/17 03:43 Consult to Critical Care [CONS] Stat Consulting Provider: [facility]m [facility] Reason for Consult: Pt is on ventilator, nonresponsive Call Completed: No Consult to Neurology [CONS] Stat Consulting Provider: Neurology [facility] Reason for Consult: Nonresponsive, unclear etiology Call Completed: No Discharging clinician: Rajinish S Jesudoss Anticipated date of discharge: 02/06/17 - Patient Status Disposition: Transfer Critical Access Hosp Condition: Serious - Discharge Instructions Follow Up With: Herman Cooper DO [Primary Care Provider] - - Hospital Course Hospital course: Mr. 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 - Time Spent with Patient Total time spent providing and/or coordinating discharge services: Greater than 30 minutes Physical Examination General appearance: comatose Auscultation: bilateral: diminished breath sounds unable to assess due to mental status, other (eyes open and rolling pupils 3 mm equal and sluggish signs of locked in .) - Stroke Contraindication Rehab Services Not Assessed: Refused by Patient / Family
--- NOTE | 2017-02-08 16:12 | Electrocardiograph Report ---
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
--- NOTE | 2017-02-08 16:13 | Electrocardiograph Report ---
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
== END 2017-02-06 09:50 | disposition critical access hospital (66) | DRG 64 ==
LOC: EMEROO 23:01 → ICNU 02-06 03:18
PROVIDERS: ADMIT Internal Medicine; ATTEND Student in an Organized Health Care Education/Training Program